=== PATIENT | female | born 1935 | race Caucasian/White ===

== ENCOUNTER → 2018-09-10 | Outpatient (REF) | payer MEDICARE, BC | LOC: ZZSENDIN 16:38 | PROVIDERS: ATTEND Family Medicine | DX: I50.9 Heart failure, unspecified (principal); R35.0 Frequency of micturition | CPT/HCPCS: 81001; 83880 ==

== ENCOUNTER → 2018-09-16 | Outpatient (CLI) | payer MEDICARE, BC ==
--- NOTE | 2018-09-16 10:43 | RADIOLOGY IMAGING REPORT ---
FACILITY: [facility] PATIENT NAME: Farrah Dunne : 1935 MR: [id number] V: [id number] EXAM DATE: ORDERING PHYSICIAN: TIGRE DEGROOT TECHNOLOGIST: Location: [facility] [place] Patient: Farrah Dunne : 1935 Visit/Account:[id number] Date of Sevice: 09/16/2018 CT CHEST W/O CONTRAST History: Lower extremity swelling TECHNIQUE: Contiguous axial images were performed through the chest to the level of the adrenal gla nds. No IV contrast was administered. Coronal and sagittal reformatting was also performed. One of t he following dose optimization techniques was utilized in the performance of this exam: Automated exp osure control; adjustment of the mA and/or kV according to the patient's size; or use of an iterative reconstruction technique. Specific details can be referenced in the facility's radiology CT exam o perational policy. COMPARISON STUDIES: none. Lungs / Pleura: There are several small scattered bulla in the lungs and evidence of mild discoid s carring primarily in the right lung. Very tiny area of tree-in-bud nodularity seen in the right post erior upper lobe (axial image [id number] and series 3/sagittal image 31). There is no focal consolidation or well formed nodules. No evidence of pulmonary edema. Mediastinum/nodes: negative. Heart and vessels: Heart is normal in size. Blood in the left ventral heart measures at 32 Hounsfie ld units suggesting mild anemia. Musculoskeletal / Body wall: negative. Upper abdomen: Several tiny stones are seen in the gallbladder. There is an exophytic left renal c yst only partially captured within the [id number] which measures 6.5 cm diameter. There is also a large hiatal hernia. IMPRESSION: Mild emphysema. Tiny tree-in-bud area right upper lobe likely inflammatory and possibly fungal Suspect mild anemia. Cholelithiasis. Moderately large hiatal hernia. Large left renal cyst Report Dictated By: Rahul Gomez MD at 09/16/2018 10:31 AM Report E-Signed By: Rauhl Gomez MD at 09/16/2018 10:39 AM WSN:[id number]
== END ==
LOC: CT 00:46
PROVIDERS: ATTEND Family Medicine
DX: J43.8 Other emphysema (principal); K80.20 Calculus of gallbladder without cholecystitis without obstruction; K44.9 Diaphragmatic hernia without obstruction or gangrene; N28.1 Cyst of kidney, acquired
CPT/HCPCS: 71250; 93306